=== PATIENT | female | born 1995 | race Caucasian/White ===

== ENCOUNTER 2017-04-30 18:22 | Emergency (ER) | payer BC ==
[2017-04-30 20:43] VITALS: BP 131/85
--- NOTE | 2017-04-30 20:59 | UC ---
FLU HPI - HPI Summary HPI Summary: 21 y/o female with h/o immunosuppression (low IgG, IgA per patient) presents with several day h/o sore throat, cough, wheezing, intermittent low grade fevers , chills. Patient states cough increasing and feels like "in lungs", came in for evaluation. + fatgue h/o chronic ear infections - History of Current Complaint Chief Complaint: UCRespiratory Stated Complaint: COUGH,HEAD & CHEST CONGESTION Time Seen by Provider: 04/30/17 20:49 Hx Obtained From: Patient Hx Last Menstrual Period: 04/08/17 Onset/Duration: Gradual Onset, Lasting Days Severity Currently: Mild Severity Initially: Moderate Associated Signs & Symptoms: Positive: Cough - Allergy/Home Medications Allergies/Adverse Reactions: Allergies Allergy/AdvReac Type Severity Reaction Status Date / Time Penicillins Allergy Hives Verified 04/30/17 20:44 Home Medications: Home Medications Drospirenone-Ethinyl Estradiol [Tiff 3-0.02 mg] 1 tab PO DAILY 04/30/17 [ History Confirmed 04/30/17] metFORMIN* [Glucophage 500 MG TAB *] 500 mg PO DAILY 04/30/17 [History Confirmed 04/30/17] PMH/Surg Hx/FS Hx/Imm Hx Previously Healthy: No - h/o immunosuppression d/t low igG - Surgical History Surgical History: Yes Surgery Procedure, Year, and Place: [facility]. Ear tubes. repair of ear drum - Social History Alcohol Use: Rare Substance Use Type: None Smoking Status (MU): Never Smoked Tobacco Review of Systems Constitutional: Fever, Chills, Fatigue ENT: Sore Throat, Ear Ache Respiratory: Cough Neurological: Headache Is Patient Immunocompromised?: Yes All Other Systems Reviewed And Are Negative: No Physical Exam Triage Information Reviewed: Yes Appearance: No Pain Distress, Well-Nourished, Ill-Appearing - mild Vital Signs: Initial Vital Signs Temp 98.0 F 04/30/17 20:39 Pulse 105 04/30/17 20:39 Resp 16 04/30/17 20:39 BP 131/85 04/30/17 20:39 Pulse Ox 96 04/30/17 20:39 Vital Signs Reviewed: Yes Eyes: Positive: Conjunctiva Clear ENT: Positive: Hearing grossly normal, Pharyngeal erythema, TM dull - b/l TM with purulent fluid behind b/l TMs, + erythematous, Tonsillar swelling, Tonsillar exudate - b/l. Negative: Nasal congestion Neck: Positive: Supple, Nontender, Enlarged Nodes @ - submandibluar, ~1cm Respiratory: Positive: Lungs clear, Normal breath sounds, No respiratory distress, No accessory muscle use. Negative: Respiratory distress, Crackles, Rhonchi, Stridor, Wheezing Cardiovascular: Positive: No Murmur, Pulses Normal, Tachycardia - mild ~100 Flu Course/Dx - Course Course Of Treatment: Rapid strep: negative. Dicussed abx treatment with patient , jeremy has PCN allergy but has used augmentin before, given ABX, follow up with PCP within 2-3 days if no improvement. - Differential Dx/Diagnosis Differential Diagnosis/HQI/PQRI: Bronchitis, Broncholiolitis Provider Diagnoses: pharyngitis, possible AOM vs chronic OM Discharge - Discharge Plan Condition: Fair Disposition: HOME Prescriptions: Azithromyxin DESTINI (NF) [Z-Destini (Zithromax) 250 mg tabs #6] 2 tab PO .TODAY, THEN 1 DAILY #6 tab Patient Education Materials: Pharyngitis (ED) Forms: *Work Release Referrals: Non Staff,Doctor [Primary Care Provider] - Additional Instructions: - Increase fluid intake - Follow up with primary within 2-3 days if no relief of symptoms - Cough medication as needed - Tylenol/motrin for fevers, chills - return with increased fevel, chills, worsening symptoms, neck pain
[2017-04-30] MEDS ORDERED: Amoxicillin/Clavulanate TAB* 875 MG PO ONE (21:14)
--- NOTE | 2017-04-30 21:53 | UC ---
Progress - Progress Note Progress Note: Patient asked prior to administration of medication if allergy to Amoxicillin, patient states she has had that in the past without difficulty. Drug given. Received call from mother stating patient was allergy to all PCN, alelrgy reaction was a rash severel years ago. Patient was called, asymptomatic, was told she could return for steroid dose to prevent symptoms, take benadryl tonight. patient opted for benadryl, abx changed to azithromycin, sent to pharm. Patient will go to ER immediately with shortness of breath or swelling. -Ronit English PAC
== END 2017-04-30 21:40 | disposition home or self-care (01) ==
LOC: UCCORT 18:22
DX: J02.9 Acute pharyngitis, unspecified (principal); R05 Cough; R06.2 Wheezing; R50.9 Fever, unspecified; R53.83 Other fatigue; D89.9 Disorder involving the immune mechanism, unspecified; Z88.0 Allergy status to penicillin
CPT/HCPCS: 87651; 99202; A9270-GY; G0463

== ENCOUNTER 2019-04-08 09:24 | Emergency (ER) | payer BC ==
[2019-04-08 10:08] VITALS: BP 115/74
--- NOTE | 2019-04-08 10:39 | UC ---
Ear Complaint HPI - HPI Summary HPI Summary: 23-year-old female comes in with a chief complaint of bilateral ear pain. She' s had upper respiratory tract infection symptoms for several days. Patient reports she gets free current otitis media and otitis externa. She reports 6 ear surgeries for tubes during her lifetime. She reports the symptoms at this time feel like she has bilateral ear infections that get treated both with by mouth and drop antibiotics. When discussing different antibiotics patient reports that she's had Omnicef in the past and that has worked for her. - History of Current Complaint Chief Complaint: UCEar Stated Complaint: BILATERAL EAR PAIN Time Seen by Provider: 04/08/19 10:29 Hx Last Menstrual Period: 03/2019 Pain Intensity: 4 - Allergies/Home Medications Allergies/Adverse Reactions: Allergies Allergy/AdvReac Type Severity Reaction Status Date / Time cefixime [From Suprax] Allergy Hives Verified 04/08/19 10:04 Penicillins Allergy Hives Verified 04/08/19 10:04 PMH/Surg Hx/FS Hx/Imm Hx Previously Healthy: Yes - RECURRENT OM/OE - Surgical History Surgical History: Yes Surgery Procedure, Year, and Place: [facility]. Ear tubes. repair of ear drum - Family History Known Family History: Positive: Non-Contributory - Social History Alcohol Use: Occasionally Substance Use Type: None Smoking Status (MU): Never Smoked Tobacco Review of Systems All Other Systems Reviewed And Are Negative: Yes Constitutional: Positive: Negative Skin: Positive: Negative Eyes: Positive: Negative ENT: Positive: Ear Ache, Nasal Discharge, Sinus Congestion Respiratory: Positive: Negative Cardiovascular: Positive: Negative Gastrointestinal: Positive: Negative Motor: Positive: Negative Neurovascular: Positive: Negative Musculoskeletal: Positive: Negative Neurological: Positive: Negative Psychological: Positive: Negative Is Patient Immunocompromised?: No Physical Exam Triage Information Reviewed: Yes Appearance: Well-Appearing, No Pain Distress, Well-Nourished Vital Signs: Initial Vital Signs Temp 98.0 F 04/08/19 10:04 Pulse 73 04/08/19 10:04 Resp 16 04/08/19 10:04 BP 115/74 04/08/19 10:04 Pulse Ox 98 04/08/19 10:04 Vital Signs Reviewed: Yes Eye Exam: Normal Eyes: Positive: Conjunctiva Clear ENT: Positive: Pharyngeal erythema, Nasal congestion, Nasal drainage, Other - Both TMs are white with extensive scarring taking difficult to determine if there is pus behind the TMs. There is debris in both ear canals. Neck: Positive: Supple Respiratory: Positive: Lungs clear, Normal breath sounds, No respiratory distress Cardiovascular: Positive: RRR Musculoskeletal: Positive: Strength Intact, ROM Intact Neurological: Positive: Alert Psychological: Positive: Age Appropriate Behavior Skin Exam: Normal Ear Complaint Course/Dx - Differential Dx/Diagnosis Provider Diagnosis: Otitis media of both ears, Otitis externa of both ears Discharge ED - Sign-Out/Discharge Documenting (check all that apply): Patient Departure All imaging exams completed and their final reports reviewed: No Studies - Discharge Plan Condition: Stable Disposition: HOME Prescriptions: Cefdinir [Cefdinir 300 MG CAP] 300 mg PO BID #20 cap Ofloxacin 0.3% (Ear Drop)* [Floxin 0.3% OTIC.MATT (Ear Drop)] 5 drop BOTH EARS BID #1 btl Patient Education Materials: Otitis Externa (ED), Ear Infection (ED) Referrals: [facility] [Outside] Additional Instructions: FOLLOW UP WITH YOUR DOCTOR IF NOT COMPLETELY IMPROVED. GET REEVALUATED SOONER IF WORSE OR ANY QUESTIONS OR CONCERNS. - Billing Disposition and Condition Condition: STABLE Disposition: Home
== END 2019-04-08 10:44 | disposition home or self-care (01) ==
LOC: UCCORT 09:24
DX: H66.93 Otitis media, unspecified, bilateral (principal); H60.93 Unspecified otitis externa, bilateral; Z88.0 Allergy status to penicillin
CPT/HCPCS: 99212; G0463

== ENCOUNTER 2019-05-06 14:13 | Emergency (ER) | payer BC ==
[2019-05-06 14:44] VITALS: BP 120/84
--- NOTE | 2019-05-06 14:57 | UC ---
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 Followed by an ENT in [place]. Mild headache, minimal cough. --reviewed record from 04/08/19, treated with cefdinir and ofloxin drops. Did feel completely better post treatment. - History of Current Complaint Stated Complaint: ST,COUGH,PLUGGED EARS Time Seen by Provider: 05/06/19 14:40 Hx Obtained From: Patient Hx Last Menstrual Period: 03/2019 Onset/Duration: Gradual Onset, Lasting Days - 3 Severity: Moderate Cough: Nonproductive Associated Signs & Symptoms: Positive: Dysphagia, Sinus Discomfort Related History: Seasonal Allergies - Epiglottits Risk Factors Epiglottis Risk Factors: Negative - Allergies/Home Medications Allergies/Adverse Reactions: Allergies Allergy/AdvReac Type Severity Reaction Status Date / Time cefixime [From Suprax] Allergy Hives Verified 05/06/19 14:45 Penicillins AdvReac Hives Verified 05/06/19 14:45 Home Medications: Home Medications FLUoxetine* [PROzac*] 10 mg PO DAILY 05/06/19 [History Confirmed 05/06/19] PMH/Surg Hx/FS Hx/Imm Hx Previously Healthy: Yes Psychological History: Depression - Surgical History Surgical History: Yes Surgery Procedure, Year, and Place: [facility]. Ear tubes. repair of ear drum - Family History Known Family History: Positive: Non-Contributory - Social History Occupation: Student Lives: Dormitory/Roommates Alcohol Use: Occasionally Substance Use Type: None Smoking Status (MU): Never Smoked Tobacco Review of Systems All Other Systems Reviewed And Are Negative: Yes Constitutional: Positive: Chills, Fatigue Skin: Positive: Negative Eyes: Positive: Negative ENT: Positive: Sore Throat, Ear Ache, Sinus Congestion Respiratory: Positive: Cough. Negative: Shortness Of Breath Cardiovascular: Positive: Negative. Negative: Palpitations, Chest Pain Gastrointestinal: Positive: Nausea. Negative: Vomiting, Diarrhea Genitourinary: Positive: Negative Motor: Positive: Negative Neurovascular: Positive: Negative Musculoskeletal: Positive: Negative Neurological: Positive: Headache Psychological: Positive: Negative Is Patient Immunocompromised?: No Physical Exam Triage Information Reviewed: Yes Appearance: Ill-Appearing - congested, looks fatigued. Eyes: Positive: Conjunctiva Clear ENT: Positive: Pharyngeal erythema, TM bulging - bilateral loss of light reflexes., TM dull, TM red - bilateral erythema, Tonsillar swelling. Negative: Tonsillar exudate Neck: Positive: Supple, Nontender, No Lymphadenopathy Respiratory: Positive: Lungs clear, Normal breath sounds Musculoskeletal Exam: Normal Neurological Exam: Normal Psychological Exam: Normal Skin Exam: Normal Throat Pain/Nasal Course/Dx - Course Course Of Treatment: Otitis media with bilateral effusions, will treat with cefdinir. Patient requests ciprodex drops to have on hand; currently canals are clear. - Differential Dx/Diagnosis Differential Diagnosis/HQI/PQRI: Laryngitis, Otitis Media, Tonsillitis Provider Diagnosis: Bilateral otitis media with effusion Discharge ED - Sign-Out/Discharge Documenting (check all that apply): Patient Departure All imaging exams completed and their final reports reviewed: No Studies - Discharge Plan Condition: Stable Disposition: HOME Prescriptions: Cefdinir [Cefdinir 300 MG CAP] 300 mg PO BID #20 cap Ciproflox/Dexameth OTIC.SUSP* [Ciprodex Otic*] 4 drop .SEE ORDER BID #1 bottle Patient Education Materials: Ear Infection (ED) Referrals: No Primary Care Phys,NOPCP [Primary Care Provider] - Additional Instructions: Begin cefdinr for treatment of ear infection; this will also cover treatment of a bacterial sinusitis. Follow up if you do not see improvement within 3 or 4 days. Use of a steroid nasal spray such as Flonase could be helpful in helping your Eustachian tubes to drain fluid from the middle ear. Use ibuprofen 600mg up to 3x daily for pain control. - Billing Disposition and Condition Condition: STABLE Disposition: Home
== END 2019-05-06 15:11 | disposition home or self-care (01) ==
LOC: UCCORT 14:13
DX: H65.93 Unspecified nonsuppurative otitis media, bilateral (principal); J02.9 Acute pharyngitis, unspecified; R13.10 Dysphagia, unspecified; Z88.0 Allergy status to penicillin; Z88.8 Allergy status to other drugs, medicaments and biological substances
CPT/HCPCS: 99212; G0463